=== PATIENT | male | born 1950 | race Caucasian/White ===

== ENCOUNTER 2018-10-16 15:32 | Inpatient (IN) | payer OTHER ==
[~2018-10-16] VITALS: Ht 188 cm; Wt 91.6 kg
[2018-10-16] MEDS ORDERED: DIVA500T2 PO (15:56)
[2018-10-16] MEDS ORDERED: HALO5TAB12 PO (15:56)
[2018-10-16] MEDS ORDERED: QUET25TA PO (15:56)
[2018-10-16] MEDS ORDERED: DIVA250T4 PO (15:56)
[2018-10-16] MEDS ORDERED: AMLO5TAB9 PO (15:56)
[2018-10-16] MEDS ORDERED: LORA-588 PO (15:56)
[2018-10-16] MEDS ORDERED: LORA-259 PO (15:56)
[2018-10-16 16:12] LABS: BASOPHILS % (AUTO) 0.5 % (0.0-2.0); EOSINOPHILS # (AUTO) 0.1 K/uL (0.0-0.7); EOSINOPHILS % (AUTO) 1.5 % (0.0-7.0); HEMATOCRIT 43.8 % (36.7-47.1); HEMOGLOBIN 14.3 g/dL (12.5-16.3); LYMPHOCYTES # (AUTO) 1.2 K/uL (20.0-40.0); LYMPHOCYTES % (AUTO) 22.4 % (20.5-51.5); MEAN CORPUSCULAR HEMOGLOBIN 31.8 uug (23.8-33.4); MEAN CORPUSCULAR HGB CONC 33 g/dL (32.5-36.3); MEAN CORPUSCULAR VOLUME 97.6 fL (73.0-96.2); MONOCYTES # (AUTO) 0.7 K/uL (2.0-10.0); MONOCYTES % (AUTO) 12.6 % (0.0-11.0); NEUTROPHILS # (AUTO) 3.4 K/uL (1.8-8.9); PLATELET COUNT (AUTO) 81 K/uL (152-348); RED BLOOD CELL COUNT(AUTO) 4.49 MIL/uL (4.06-5.63); WHITE BLOOD COUNT (AUTO) 5.3 K/uL (3.6-10.2)
[2018-10-16 16:23] LABS: ETHANOL < 3 MG/DL (0-0)
[2018-10-16 16:24] LABS: CARBON DIOXIDE 25 mmol/L (21-32); CHLORIDE 109 mmol/L (98-107); CREATININE 0.8 mg/dL (0.6-1.3); GLUCOSE 87 mg/dL (74-106); POTASSIUM 4.1 mmol/L (3.5-5.1); UREA NITROGEN, BLOOD 22 mg/dL (7-18)
[2018-10-16 16:30] LABS: ALANINE AMINOTRANSFERASE 64 U/L (16-63); ALKALINE PHOSPHATASE 99 U/L (50-136); ASPARTATE AMINOTRANSFERASE 36 U/L (15-37); BILIRUBIN,DIRECT 0.2 mg/dL (0.0-0.2); BILIRUBIN,TOTAL 0.6 mg/dL (0.2-1.0); TOTAL PROTEIN, SERUM 7.2 g/dL (6.4-8.2)
[2018-10-16 16:31] LABS: ACETAMINOPHEN < 2.0 ug/mL (10-30)
[2018-10-16 17:02] LABS: THYROID STIMULATING HORMONE 1.551 mIU/mL (0.358-3.740)
--- NOTE | 2018-10-16 17:03 | NUR ---
[id number] Spoke with Armaan to inform of Psych evaluation needed per verbal medical clearance by MD. Per Armaan, ETA of over an hr. DARRELL Hammer
--- NOTE | 2018-10-16 18:00 | NUR ---
PT AMBULATED TO BATHROOM WITH STEADY GAIT.
[2018-10-16 18:25] LABS: *BILIRUBIN,URIN NEGATIVE (NEGATIVE); *CLARITY,URINE CLEAR (CLEAR); *COLOR,URINE YELLOW (YELLOW); *KETONES,URINE 1+ (NEGATIVE); *UROBILINOGEN,URINE 0.2 E.U./dl (NORMAL); LEUKOCYTE ESTERASE ,URINE NEGATIVE (NEGATIVE); NITRITE, URINE NEGATIVE (NEGATIVE); UGLUCOSE NEGATIVE (NEGATIVE)
--- NOTE | 2018-10-16 18:36 | NUR ---
[facility] PROVIDED FOR PT.
[2018-10-16 18:37] LABS: *BLOOD, URINE TRACE (NEGATIVE)
[2018-10-16 18:38] LABS: *AMPHETAMINE, URINE NEGATIVE (NEGATIVE); *BARBITURATE, URINE NEGATIVE (NEGATIVE); *CANNABINOID, URINE NEGATIVE (NEGATIVE); *COCCAINE, URINE NEGATIVE (NEGATIVE); *OPIATE, URINE NEGATIVE (NEGATIVE); *PHENCYCLIDINE SCREEN,URINE NEGATIVE (NEGATIVE)
[2018-10-16 18:39] LABS: MUCUS,URINE MANY /LPF (0-FEW); SQUAMOUS EPITHELIAL CELL,UR FEW /HPF (NONE SEEN); WBC,URINE 0-3 /HPF (0-3)
[2018-10-16 18:50] LABS: BAND % (MANUAL) 2 % (0-10); EOSINOPHILS % (MANUAL) 1 % (0-8); LYMPHOCYTES % (MANUAL) 26 % (20-40); MONOCYTES % (MANUAL) 10 % (2-10); NEUTROPHILS % (MANUAL) 61 % (42-75)
--- NOTE | 2018-10-16 18:57 | NUR ---
PT REMAINED CALM AND COOPERATIVE THE WHOLE ER STAY. PT UNDER ONE TO ONE OBSERVATION BY SECURITY. HANDS OFF REPORT GIVEN TO RADHA DONG
--- NOTE | 2018-10-16 19:53 | NUR ---
Pt. admitted to [facility] , under care of Dr. Dominguez/Dr. Bud Love. Diagnosis: 5150 Hold Gravely Disabled. Belongs List completed. MRSA swab done. Addendum: 10/16/18 at 2001 by TPADOLINA Pt. admitted to U, under care of Dr. Melvin/King Diagnosis: 5150 Hold Gravely Disabled Belongs List completed. MRSA swab completed.
--- NOTE | 2018-10-16 19:59 | NUR ---
Carolin meeks in ED - 10/16/18 at [address] Marinelli ([facility]) accepts pt. Authorization #[id number]
[2018-10-16] MEDS ORDERED: MAG HYDROX/AL HYDROX/SIMETH 30 ML LIQUID UDC PO PRN (20:15)
--- NOTE | 2018-10-16 21:00 | NUR ---
GPS: 67 year old male admitted to U , under care of Dr. Dominguez/Dr. Bud Love. for Dx: of 5150/Gd to u. alert and oriented x2 to name and time only. patient is confused and forgetful. unable to provide past history. patient ambulate with steady gait. no c/o pain or discomfort at this time. no agitation noted. assisted to bed. belongs list completed. v/s taken and Documented. monitoring for safety. Addendum: 10/17/18 at 0618 by EMMANUEL STORY RN DR. REYNAGA ASSIGNED TO PATIENTS CARE.
[2018-10-16] MEDS: TEMAZEPAM 7.5 MG CAPSULE PO PRN (23:13)
--- NOTE | 2018-10-17 06:32 | NUR ---
GPS: Remain confused and disoriented. but compliant with meds and care. took showered this morning. slept 8 hrs through the night. no agitation noted at this time. continue monitoring for safety.
[2018-10-17 07:30] VITALS: BP 124/72
[2018-10-17] MEDS: AMLODIPINE 5 MG TABLET PO SCH (09:16)
--- NOTE | 2018-10-17 12:41 | NUR ---
Initial Discharge Note: Patient is a 67 year old male who currently resides at [facility] [[address], [place] [id number]; [phone], ]. Patient states he makes his own decisions. Per patient, he would like to return to [facility] or he is open to any other placement he can afford. Director Teen Post will continue to meet with patient and collaborate with patient and MD on a safe and proper discharge.
[2018-10-17] MEDS: DIVALPROEX 250 MG TABLET.DR PO SCH ×2 (13:32→20:29)
[2018-10-17] MEDS: HALOPERIDOL 5 MG TABLET PO SCH ×2 (13:32→16:25)
[2018-10-17] MEDS: BENZTROPINE MESYLATE 1 MG TABLET PO SCH ×2 (13:32→16:25)
--- NOTE | 2018-10-17 15:49 | NUR ---
Discharge Planning: Buckle Stapler contacted facility [facility] [[address], [facility] [address]; [phone] and spoke with Elsy, Inspector Exhaust Emissions. Per Elsy, patient is able to return to facility once he is ready for discharge.
[2018-10-17 16:00] VITALS: BP 99/54
[2018-10-17 19:47] VITALS: BP 124/72
[2018-10-17] MEDS: TEMAZEPAM 7.5 MG CAPSULE PO PRN (23:47)
[2018-10-18 07:30] VITALS: BP 113/69
[2018-10-18] MEDS: DIVALPROEX 250 MG TABLET.DR PO SCH ×3 (08:36→20:42)
[2018-10-18] MEDS: HALOPERIDOL 5 MG TABLET PO SCH ×2 (08:36→17:30)
[2018-10-18] MEDS: BENZTROPINE MESYLATE 1 MG TABLET PO SCH ×3 (08:36→17:30)
[2018-10-18] MEDS: AMLODIPINE 5 MG TABLET PO SCH (08:37)
[2018-10-18] MEDS: ASPIRIN 81 MG TAB.CHEW PO SCH (08:37)
[2018-10-18] MEDS: NICOTINE 21 MG/24HR PATCH TD SCH (15:48)
[2018-10-18 16:17] VITALS: BP 121/56
[2018-10-18 20:34] VITALS: BP 126/64
[2018-10-19] MEDS: TEMAZEPAM 7.5 MG CAPSULE PO PRN (01:16)
[2018-10-19] MEDS: LORAZEPAM 0.5 MG TABLET PO PRN ×2 (04:53→12:01)
[2018-10-19 07:30] VITALS: BP 113/71
[2018-10-19] MEDS: HALOPERIDOL 5 MG TABLET PO SCH ×2 (08:57→16:31)
[2018-10-19] MEDS: ASPIRIN 81 MG TAB.CHEW PO SCH (08:57)
[2018-10-19] MEDS: BENZTROPINE MESYLATE 1 MG TABLET PO SCH ×3 (08:57→16:31)
[2018-10-19] MEDS: DIVALPROEX 250 MG TABLET.DR PO SCH ×3 (08:58→20:01)
[2018-10-19] MEDS: AMLODIPINE 5 MG TABLET PO SCH (08:58)
[2018-10-19] MEDS: NICOTINE 21 MG/24HR PATCH TD SCH (08:58)
[2018-10-19] MEDS: ACETAMINOPHEN 325 MG TABLET PO PRN (12:02)
[2018-10-19] MEDS: LORATADINE 10 MG TABLET PO PRN (15:43)
[2018-10-19 16:00] VITALS: BP 119/68
[2018-10-19 19:50] VITALS: BP 114/80
--- NOTE | 2018-10-20 06:46 | NUR ---
PATIENT SLEPT FOR APPROX. 8.0 THROUGH THE NIGHT. REMAINS MED COMPLIANT. HE REQUIRED MULTIPLE REDIRECTION THROUGHOUT THE SHIFT. WILL CONTINUE TO MONITOR.
[2018-10-20 07:30] VITALS: BP 120/61
[2018-10-20] MEDS: HALOPERIDOL 5 MG TABLET PO SCH ×2 (08:31→16:18)
[2018-10-20] MEDS: NICOTINE 21 MG/24HR PATCH TD SCH (08:31)
[2018-10-20] MEDS: BENZTROPINE MESYLATE 1 MG TABLET PO SCH ×3 (08:31→16:18)
[2018-10-20] MEDS: ASPIRIN 81 MG TAB.CHEW PO SCH (08:31)
[2018-10-20] MEDS: AMLODIPINE 5 MG TABLET PO SCH (08:31)
[2018-10-20] MEDS: DIVALPROEX 250 MG TABLET.DR PO SCH ×3 (08:31→20:16)
[2018-10-20] MEDS: LORAZEPAM 0.5 MG TABLET PO PRN (08:31)
--- NOTE | 2018-10-20 11:24 | NUR ---
UR NOTE: asphalt worker faxed clinical information to outpatient case managerErma [phone: [phone]; fax: ], at [employer]. asphalt worker received successful fax confirmation and placed a copy in patient chart.
[2018-10-20] MEDS: ACETAMINOPHEN 325 MG TABLET PO PRN (12:30)
--- NOTE | 2018-10-20 13:29 | NUR ---
UR Note: Spoke with Michele Huntley [employer] Sales Representative [[phone]] provided verbal authorization of psychiatric stay at [facility] at approx 12:00. Shovel Mechanic will follow up with next review on 10/21/18 morning.
[2018-10-20 15:45] VITALS: BP 116/62
[2018-10-20] MEDS: LORATADINE 10 MG TABLET PO PRN (16:18)
--- NOTE | 2018-10-20 19:20 | NUR ---
RECEIVED PT RESTING ON HIS BED COMFORTABLY. PT PLEASANT WHEN APPROACH. PT SHOWS NO SIGNS OF ACUTE DISTRESS. SAFETY AND COMFORT PROVIDED. WILL COTNINUE TO MONITOR.
[2018-10-20 20:14] VITALS: BP 145/75
[2018-10-20] MEDS ORDERED: HALOPERIDOL 5 MG TABLET PO ONE (22:15)
--- NOTE | 2018-10-21 06:54 | NUR ---
PT SLEPT 6 HOURS. PT SHOWS NO SIGNS OF ACUTE DISTRESS. SAFETY AND COMFORT PROVIDED. WILL ENDORSE ACCORDINGLY TO INCOMING NURSE FOR CONTINUITY OF CARE.
[2018-10-21 07:30] VITALS: BP 130/67
[2018-10-21 07:54] LABS: BASOPHILS % (AUTO) 0.5 % (0.0-2.0); EOSINOPHILS # (AUTO) 0.1 K/uL (0.0-0.7); HEMATOCRIT 42.7 % (36.7-47.1); LYMPHOCYTES # (AUTO) 1.2 K/uL (20.0-40.0); LYMPHOCYTES % (AUTO) 31.8 % (20.5-51.5); MEAN CORPUSCULAR HEMOGLOBIN 31.9 uug (23.8-33.4); MEAN CORPUSCULAR HGB CONC 33 g/dL (32.5-36.3); MEAN CORPUSCULAR VOLUME 96.8 fL (73.0-96.2); MONOCYTES # (AUTO) 0.3 K/uL (2.0-10.0); MONOCYTES % (AUTO) 7.6 % (0.0-11.0); NEUTROPHILS # (AUTO) 2.1 K/uL (1.8-8.9); NEUTROPHILS % (AUTO) 57.1 % (38.5-71.5); PLATELET COUNT (AUTO) 72 K/uL (152-348); RED BLOOD CELL COUNT(AUTO) 4.41 MIL/uL (4.06-5.63); WHITE BLOOD COUNT (AUTO) 3.6 K/uL (3.6-10.2)
[2018-10-21 08:10] LABS: BILIRUBIN,TOTAL 0.5 mg/dL (0.2-1.0); CREATININE 1.1 mg/dL (0.6-1.3); POTASSIUM 3.9 mmol/L (3.5-5.1); TOTAL PROTEIN, SERUM 6.8 g/dL (6.4-8.2)
[2018-10-21] MEDS: ASPIRIN 81 MG TAB.CHEW PO SCH (08:46)
[2018-10-21] MEDS: AMLODIPINE 5 MG TABLET PO SCH (08:47)
[2018-10-21] MEDS: NICOTINE 21 MG/24HR PATCH TD SCH (08:47)
[2018-10-21] MEDS: DIVALPROEX 250 MG TABLET.DR PO SCH ×3 (08:47→20:00)
[2018-10-21] MEDS: BENZTROPINE MESYLATE 1 MG TABLET PO SCH ×3 (08:47→16:28)
[2018-10-21] MEDS: HALOPERIDOL 5 MG TABLET PO SCH ×3 (08:47→20:00)
[2018-10-21 09:06] LABS: EOSINOPHILS % (MANUAL) 5 % (0-8); LYMPHOCYTES % (MANUAL) 24 % (20-40); MONOCYTES % (MANUAL) 5 % (2-10); NEUTROPHILS % (MANUAL) 66 % (42-75)
--- NOTE | 2018-10-21 10:41 | NUR ---
Patient care will be endorse to DARRELL Ritchie who will continue with care plan.
--- NOTE | 2018-10-21 13:45 | NUR ---
UR NOTE: International Affairs Vice President faxed clinical information to Audi lockwood [phone: [phone]; fax: ] at [employer]. International Affairs Vice President received successful fax confirmation and placed a copy in the patient's chart.
[2018-10-21 15:42] VITALS: BP 112/70
[2018-10-21 19:56] VITALS: BP 137/66
--- NOTE | 2018-10-21 20:55 | NUR ---
GPS: Rec'd patient in bed asleep. Easily arousable to name. No acute distress noted. Per report no episode of combative and aggressive behavior during the day. Took all due HS meds as ordered. Denies pain. All safety precaution in place. Will continue to monitor behavior.
[2018-10-22 07:30] VITALS: BP 135/70
[2018-10-22] MEDS: DIVALPROEX 250 MG TABLET.DR PO SCH ×3 (08:07→20:54)
[2018-10-22] MEDS: NICOTINE 21 MG/24HR PATCH TD SCH (08:07)
[2018-10-22] MEDS: ASPIRIN 81 MG TAB.CHEW PO SCH (08:07)
[2018-10-22] MEDS: BENZTROPINE MESYLATE 1 MG TABLET PO SCH ×3 (08:07→16:00)
[2018-10-22] MEDS: HALOPERIDOL 5 MG TABLET PO SCH ×3 (08:07→20:53)
[2018-10-22] MEDS: AMLODIPINE 5 MG TABLET PO SCH (08:12)
--- NOTE | 2018-10-22 11:49 | NUR ---
UR Note: 10/22/18 - Taxation Agent faxed clinical information to dependency case managerAudi [phone: [phone]; fax: ] at [facility]. Taxation Agent received successful fax confirmation and placed a copy in the patient's chart
--- NOTE | 2018-10-22 12:44 | NUR ---
UR Note: Spinner Open End contacted Audi, Steam Clean Machine Operator at [facility] [[phone]] to request SNF authorization. Per Audi, SNF placement is not authorized due to patient lacking skilled need for placement at the moment. Patient will return to [facility] [[address], [facility] [address]].
[2018-10-22 16:00] VITALS: BP 95/53
--- NOTE | 2018-10-22 17:46 | NUR ---
GPS: RECEIVED PATIENT ALERT ORIENTED, DENIES PAIN, AMBULATES IN HALLWAY COMPLIANT WITH MEDS, PATIENT SOMEWHAT ISOLATIVE HOWEVER DENIES SI AND HI, KEPT COMFORTABLE , WITH DC PLANNING FOR FOR CHERELLE TO [facility] , PATIENT AWARE OF THE DC PLANNING , WILL CONTINUE MONITOR
[2018-10-22 20:32] VITALS: BP 123/72
[2018-10-22] MEDS: TEMAZEPAM 7.5 MG CAPSULE PO PRN (23:54)
[2018-10-23 07:30] VITALS: BP 108/72
--- NOTE | 2018-10-23 08:26 | NUR ---
DC NOTE: Patient will be discharged back to [facility] [[address], [place] [address]; ]. Please arrange an ambulance for this patient at 12:00pm. Spoke to Mae, Engraver Apprentice Decorative [ ]. Per Mae, facility is ready to accept patient back today. Patient is AxOx1-2. Patient is aware and agreeable with discharge plans. Patients Chemical Plant Operator Onelia at [facility] received update regarding patients discharge. Patient will follow up at [facility] [[address], [place] [address]; ] with Torie Billings N.P., on Sunday, November 04, 2018 at 2:45pm. Patient was given outpatient mental health resources to [facility] , Layne Velasquez , and the National Suicide Prevention Lifeline .
[2018-10-23 08:42] VITALS: BP 140/79
[2018-10-23] MEDS: BENZTROPINE MESYLATE 1 MG TABLET PO SCH ×2 (08:42→12:02)
[2018-10-23] MEDS: ASPIRIN 81 MG TAB.CHEW PO SCH (08:42)
[2018-10-23] MEDS: AMLODIPINE 5 MG TABLET PO SCH (08:42)
[2018-10-23] MEDS: HALOPERIDOL 5 MG TABLET PO SCH (08:42)
[2018-10-23] MEDS: DIVALPROEX 250 MG TABLET.DR PO SCH ×2 (08:42→12:02)
[2018-10-23] MEDS: NICOTINE 21 MG/24HR PATCH TD SCH (08:43)
--- NOTE | 2018-10-23 11:06 | NUR ---
GPS RECEIVED PATIENT AWAKE ON BED , DENIES SI AND HI NO DISTRESS NOTED COMPLIANT WITH MEDICATION AND TREATMENT, PATIENT HAS DC ORDER TO [facility], PATIENT AWARE OF THE DC, INSTRUCTION AND HOME MEDS GIVEN, EMPHASIZES ON PATIENT TO COMPLY AND FOLLOW UP WITH PSYCHIATRIST UPON DISCHARGE, [facility]SP[facility] , WILL CONTINUE MONITOR
--- NOTE | 2018-10-23 12:05 | NUR ---
UR Note: 10/23/18 - Instructor Apparel Manufacture faxed clinical information to special education case managerAudi [phone: [phone] [phone]; fax: ] at [facility]. Instructor Apparel Manufacture received successful fax confirmation and placed a copy in the patient's chart
--- NOTE | 2018-10-23 13:25 | NUR ---
GPS: PATIENT DISCHARGED TO [facility] WITH BELONGINGS ND VALUABLES ACCOUNTED , WITH HOME MEDS INSTRUCTION GIVEN
== END 2018-10-23 13:30 | DRG 885 ==
LOC: ER 15:32 → GPS 20:13
PROVIDERS: ADMIT Psychiatry & Neurology Psychosomatic Medicine; ATTEND Internal Medicine
DX: F20.9 Schizophrenia, unspecified (principal); F01.50 Vascular dementia, unspecified severity, without behavioral disturbance, psychotic disturbance, mood disturbance, and anxiety; G93.40 Encephalopathy, unspecified; H54.62 Unqualified visual loss, left eye, normal vision right eye; H40.9 Unspecified glaucoma; Z86.73 Personal history of transient ischemic attack (TIA), and cerebral infarction without residual deficits; R31.9 Hematuria, unspecified; Z59.0 Homelessness; F41.9 Anxiety disorder, unspecified; I10 Essential (primary) hypertension; Z79.899 Other long term (current) drug therapy
CPT/HCPCS: 36415; 70030-TC; 70450; 71045; 80164; 80307; 83605; 84443; 85025; 85730; 87040; 87086; 93005; A4663; G0480; G0480-TC; J3490